=== PATIENT | male | born 1940 | race Caucasian/White ===

== ENCOUNTER 2016-05-07 15:32 | Inpatient (IN) | payer MEDICARE ==
[~2016-05-07] VITALS: Ht 177.8 cm; Wt 47.5 kg
[2016-05-07 17:01] VITALS: BP_SYST 110; BP_SYST 98; RESP 16; TEMP 97.3
[2016-05-07 17:02] VITALS: BMI 14.6
[2016-05-07] MEDS ORDERED: DUONEB INH ONE (17:05)
[2016-05-07] MEDS ORDERED: CEFTRIAXONE 1 GM in SODIUM CHLORIDE 0.9% 50 ML IV SCH (17:06)
[2016-05-07] MEDS: DUONEB INH SCH ×2 (17:07→23:21)
[2016-05-07 17:21] VITALS: RESP 18
[2016-05-07 19:30] VITALS: BP_SYST 107; RESP 18; TEMP 97.1
[2016-05-07] MEDS ORDERED: OPTIRAY 350 100 ML VIAL HMH IV ONE (20:23)
[2016-05-07 22:43] VITALS: BP_SYST 90; RESP 18; TEMP 98.4
[2016-05-07] MEDS ORDERED: MAG CIT SOLN 300 ML PO ONE (23:15)
[2016-05-08] MEDS: PIPERACIL/TAZO 3.375GM/50ML 50 ML IV SCH ×4 (00:17→17:31)
[2016-05-08] MEDS: PROMETHAZINE 25 MG/ML VIAL IV PRN (01:58)
[2016-05-08 04:03] VITALS: BP_SYST 117; RESP 18; TEMP 98
[2016-05-08 04:04] VITALS: RESP 18; TEMP 98
[2016-05-08] MEDS: CILOSTAZOL 100 MG TAB PO SCH ×2 (06:11→17:31)
[2016-05-08] MEDS: DUONEB INH SCH ×5 (06:56→22:48)
[2016-05-08 07:21] VITALS: BP_SYST 93; RESP 16; TEMP 97.3
[2016-05-08 09:33] VITALS: Ht 177.8 cm; Wt 47.5 kg
[2016-05-08 11:04] VITALS: BP_SYST 97; RESP 16; TEMP 97.7
[2016-05-08 15:10] VITALS: BP_SYST 96; RESP 16; TEMP 97.4
[2016-05-08] MEDS: NEB-XOPENEX 0.63 MG/3 ML INH SCH ×2 (19:00→22:49)
[2016-05-08] MEDS: NEB-BUDESONIDE 0.5 MG INH SCH (19:20)
[2016-05-08] MEDS: NEB-BROVANA 15 MCG/2 ML INH SCH (19:20)
[2016-05-08 21:03] VITALS: BP_SYST 85; RESP 18; TEMP 98.1
[2016-05-08] MEDS: METHYLPRED SOD SUCC 40 MG VIAL IV SCH (21:34)
[2016-05-09] VITALS (7 sets, daily range): BP systolic 85–122; RESP 16–20; TEMP 97.8–98.6
[2016-05-09] MEDS: PIPERACIL/TAZO 3.375GM/50ML 50 ML IV SCH ×4 (00:11→17:22)
[2016-05-09] MEDS: METHYLPRED SOD SUCC 40 MG VIAL IV SCH ×4 (00:12→17:22)
[2016-05-09] MEDS ORDERED: *PINK BRACELET XX ONE (05:00)
[2016-05-09] MEDS: CILOSTAZOL 100 MG TAB PO SCH ×2 (06:03→17:22)
[2016-05-09] MEDS: SODIUM CHLORIDE 0.9% 1,000 ML IV SCH (06:38)
[2016-05-09] MEDS: NEB-XOPENEX 0.63 MG/3 ML INH SCH ×4 (07:00→22:41)
[2016-05-09] MEDS: NEB-BROVANA 15 MCG/2 ML INH SCH ×2 (07:40→18:37)
[2016-05-09] MEDS: NEB-BUDESONIDE 0.5 MG INH SCH ×2 (07:40→18:37)
[2016-05-09] MEDS: DUONEB INH SCH ×5 (07:40→22:40)
[2016-05-09] MEDS: [UNRECOGNIZED DRUG - OTHER] XX SCH ×2 (08:00→20:00)
[2016-05-09] MEDS: FAMOTIDINE 20 MG TAB PO SCH (22:05)
[2016-05-09] MEDS: CHOLECALCIFEROL 5,000 UNITS CAP PO SCH (22:07)
[2016-05-10] MEDS: PIPERACIL/TAZO 3.375GM/50ML 50 ML IV SCH ×4 (01:28→18:04)
[2016-05-10] MEDS: METHYLPRED SOD SUCC 40 MG VIAL IV SCH ×4 (01:28→18:04)
[2016-05-10 04:42] VITALS: BP_SYST 97; RESP 16; TEMP 97.9
[2016-05-10] MEDS: SODIUM CHLORIDE 0.9% 1,000 ML IV SCH ×2 (04:53→16:27)
[2016-05-10] MEDS: DUONEB INH SCH ×5 (06:14→22:53)
[2016-05-10] MEDS: NEB-BROVANA 15 MCG/2 ML INH SCH ×2 (06:14→18:43)
[2016-05-10] MEDS: NEB-BUDESONIDE 0.5 MG INH SCH ×2 (06:14→18:43)
[2016-05-10] MEDS: NEB-XOPENEX 0.63 MG/3 ML INH SCH ×5 (06:15→22:53)
[2016-05-10] MEDS: CILOSTAZOL 100 MG TAB PO SCH ×2 (06:36→16:28)
[2016-05-10 07:17] VITALS: BP_SYST 98; RESP 20; TEMP 97.7
[2016-05-10] MEDS: [UNRECOGNIZED DRUG - OTHER] XX SCH ×2 (08:00→19:19)
[2016-05-10] MEDS: CHOLECALCIFEROL 5,000 UNITS CAP PO SCH (08:44)
[2016-05-10] MEDS: FAMOTIDINE 20 MG TAB PO SCH ×2 (08:45→21:40)
[2016-05-10 11:44] VITALS: BP_SYST 93; RESP 20; TEMP 97.7
[2016-05-10] MEDS: Senna/DSS 50/8.6 MG TAB PO SCH ×2 (12:55→21:39)
[2016-05-10 15:23] VITALS: BP_SYST 83; RESP 18; TEMP 98.1
[2016-05-10 20:06] VITALS: BP_SYST 115; RESP 20; TEMP 98.1
[2016-05-10] MEDS: TAMSULOSIN 0.4 MG CAP PO SCH (21:39)
[2016-05-11] VITALS (19 sets, daily range): BP systolic 81–134; RESP 16–19; TEMP 97.5–98.4
[2016-05-11] MEDS: DUONEB INH SCH ×4 (06:02→18:18)
[2016-05-11] MEDS: NEB-BUDESONIDE 0.5 MG INH SCH ×2 (06:02→18:18)
[2016-05-11] MEDS: NEB-BROVANA 15 MCG/2 ML INH SCH ×2 (06:02→18:18)
[2016-05-11] MEDS: NEB-XOPENEX 0.63 MG/3 ML INH SCH ×5 (06:03→23:19)
[2016-05-11] MEDS: PIPERACIL/TAZO 3.375GM/50ML 50 ML IV SCH ×4 (06:04→18:10)
[2016-05-11] MEDS: SODIUM CHLORIDE 0.9% 1,000 ML IV SCH (06:05)
[2016-05-11] MEDS: CILOSTAZOL 100 MG TAB PO SCH ×2 (06:14→15:56)
[2016-05-11] MEDS: METHYLPRED SOD SUCC 40 MG VIAL IV SCH ×4 (06:14→18:10)
[2016-05-11] MEDS: [UNRECOGNIZED DRUG - OTHER] XX SCH ×2 (08:00→20:00)
[2016-05-11] MEDS: CHOLECALCIFEROL 5,000 UNITS CAP PO SCH (09:47)
[2016-05-11] MEDS: FAMOTIDINE 20 MG TAB PO SCH ×2 (09:47→22:15)
[2016-05-11] MEDS: Senna/DSS 50/8.6 MG TAB PO SCH (10:00)
[2016-05-11] MEDS ORDERED: ALU/MAG/SIM 30 ML UDC PO PRN (18:45)
[2016-05-11] MEDS ORDERED: Furosemide 40 MG/4 ML VIAL ONE (19:53)
[2016-05-11] MEDS ORDERED: Furosemide 20 MG/2 ML VIAL IV ONE (19:55)
[2016-05-11] MEDS ORDERED: CARDIZEM 1 MG/ML DRIP 125 ML IV SCH (20:25)
[2016-05-11] MEDS ORDERED: DILTIAZEM 125 MG in DEXTROSE 125 ML IV PUSH ONE (20:30)
[2016-05-11] MEDS: POLYETHYLENE GLYCOL 17 GM PACKET PO SCH (22:14)
[2016-05-11] MEDS: ENOXAPARIN 30 MG/0.3 ML SYR SUBQ SCH (22:15)
[2016-05-11] MEDS: TAMSULOSIN 0.4 MG CAP PO SCH (22:15)
[2016-05-12] VITALS (9 sets, daily range): BP systolic 87–132; RESP 16–19; TEMP 97.8–98.4
[2016-05-12] MEDS ORDERED: MISSING DOSE XX ONE ×2 (01:05)
[2016-05-12] MEDS ORDERED: ACETAMINOPHEN 325 MG TAB PO PRN (01:15)
[2016-05-12] MEDS: METHYLPRED SOD SUCC 40 MG VIAL IV SCH ×2 (01:23→05:30)
[2016-05-12] MEDS: PIPERACIL/TAZO 3.375GM/50ML 50 ML IV SCH ×5 (01:24→23:19)
[2016-05-12] MEDS: CILOSTAZOL 100 MG TAB PO SCH ×3 (05:28→20:44)
[2016-05-12] MEDS: NEB-XOPENEX 0.63 MG/3 ML INH SCH (06:42)
[2016-05-12] MEDS: NEB-BUDESONIDE 0.5 MG INH SCH ×2 (06:42→19:30)
[2016-05-12] MEDS: FAMOTIDINE 20 MG TAB PO SCH (08:25)
[2016-05-12] MEDS: CHOLECALCIFEROL 5,000 UNITS CAP PO SCH (08:25)
[2016-05-12] MEDS: ENOXAPARIN 30 MG/0.3 ML SYR SUBQ SCH ×2 (08:25→20:46)
[2016-05-12] MEDS: [UNRECOGNIZED DRUG - OTHER] XX SCH ×2 (08:25→20:00)
[2016-05-12] MEDS: NEB-XOPENEX 0.63 MG/3 ML INH PRN (10:47)
[2016-05-12] MEDS: DILTIAZEM CD 120 MG CAP PO SCH (19:40)
[2016-05-12] MEDS: RANITIDINE 150 MG TAB PO SCH (20:44)
[2016-05-12] MEDS: TAMSULOSIN 0.4 MG CAP PO SCH (20:44)
[2016-05-12] MEDS: POLYETHYLENE GLYCOL 17 GM PACKET PO SCH (20:45)
[2016-05-12] MEDS: KCL CR 10 MEQ TAB PO SCH (22:54)
[2016-05-13] VITALS: BP_SYST 118; RESP 18; TEMP 98.3
[2016-05-13 04:01] VITALS: BP_SYST 111; RESP 16; TEMP 98.1
[2016-05-13] MEDS: PIPERACIL/TAZO 3.375GM/50ML 50 ML IV SCH ×4 (05:12→23:54)
[2016-05-13] MEDS: CILOSTAZOL 100 MG TAB PO SCH ×2 (06:05→16:22)
[2016-05-13] MEDS: NEB-BUDESONIDE 0.5 MG INH SCH ×2 (06:55→19:34)
[2016-05-13 07:46] VITALS: BP_SYST 132; RESP 16; TEMP 97.8
[2016-05-13] MEDS: [UNRECOGNIZED DRUG - OTHER] XX SCH ×2 (08:00→20:00)
[2016-05-13] MEDS: CHOLECALCIFEROL 5,000 UNITS CAP PO SCH (08:34)
[2016-05-13] MEDS: DILTIAZEM CD 120 MG CAP PO SCH (08:34)
[2016-05-13] MEDS: KCL CR 10 MEQ TAB PO SCH ×2 (08:34→20:52)
[2016-05-13] MEDS: ENOXAPARIN 30 MG/0.3 ML SYR SUBQ SCH ×2 (08:34→20:53)
[2016-05-13] MEDS: RANITIDINE 150 MG TAB PO SCH ×2 (08:34→20:52)
[2016-05-13 11:15] VITALS: BP_SYST 111; RESP 18; TEMP 97.6; TEMP 98
[2016-05-13 16:01] VITALS: BP_SYST 94; RESP 18; TEMP 97.9
[2016-05-13 20:03] VITALS: BP_SYST 106; RESP 18; TEMP 98
[2016-05-13] MEDS: TAMSULOSIN 0.4 MG CAP PO SCH (20:52)
[2016-05-13] MEDS: POLYETHYLENE GLYCOL 17 GM PACKET PO SCH (20:53)
[2016-05-13] MEDS: NEB-XOPENEX 0.63 MG/3 ML INH PRN (21:09)
[2016-05-13] MEDS ORDERED: DIGOXIN 0.5 MG/2 ML AMP IV ONE (22:10)
[2016-05-14] VITALS (9 sets, daily range): BP systolic 85–128; RESP 16–20; TEMP 97.3–98.8
[2016-05-14] MEDS: PIPERACIL/TAZO 3.375GM/50ML 50 ML IV SCH ×3 (05:06→18:17)
[2016-05-14] MEDS: CILOSTAZOL 100 MG TAB PO SCH ×2 (06:34→15:59)
[2016-05-14] MEDS: NEB-BUDESONIDE 0.5 MG INH SCH ×2 (07:15→20:14)
[2016-05-14] MEDS: [UNRECOGNIZED DRUG - OTHER] XX SCH ×2 (08:00→20:00)
[2016-05-14] MEDS: CHOLECALCIFEROL 5,000 UNITS CAP PO SCH (08:03)
[2016-05-14] MEDS: DILTIAZEM CD 120 MG CAP PO SCH (08:03)
[2016-05-14] MEDS: ENOXAPARIN 30 MG/0.3 ML SYR SUBQ SCH ×2 (08:03→21:05)
[2016-05-14] MEDS: RANITIDINE 150 MG TAB PO SCH ×2 (08:04→21:04)
[2016-05-14] MEDS: KCL CR 10 MEQ TAB PO SCH ×2 (08:04→21:05)
[2016-05-14] MEDS: TAMSULOSIN 0.4 MG CAP PO SCH (21:05)
[2016-05-14] MEDS: POLYETHYLENE GLYCOL 17 GM PACKET PO SCH (21:06)
[2016-05-14] MEDS: NEB-Levalbuterol 0.31 MG/3 ML NEBU INH SCH (21:50)
[2016-05-14] MEDS ORDERED: MAGNESIUM SULF 1 GM/100 ML 100 ML IV ONE (21:50)
[2016-05-15] VITALS (8 sets, daily range): BP systolic 78–117; RESP 16–20; TEMP 97.4–98.5
[2016-05-15] MEDS: PIPERACIL/TAZO 3.375GM/50ML 50 ML IV SCH (00:24)
[2016-05-15] MEDS ORDERED: SALINE FLUSH 10 ML FLUSH PRN (00:25)
[2016-05-15] MEDS: SODIUM CHLORIDE 0.9% FLUSH BAG 500 ML IV SCH (06:23)
[2016-05-15] MEDS: CILOSTAZOL 100 MG TAB PO SCH ×2 (06:24→15:52)
[2016-05-15] MEDS: NEB-Levalbuterol 0.31 MG/3 ML NEBU INH SCH ×3 (07:16→20:16)
[2016-05-15] MEDS: NEB-BUDESONIDE 0.5 MG INH SCH ×2 (07:16→20:16)
[2016-05-15] MEDS: [UNRECOGNIZED DRUG - OTHER] XX SCH ×2 (07:30→20:00)
[2016-05-15] MEDS: CHOLECALCIFEROL 5,000 UNITS CAP PO SCH (09:20)
[2016-05-15] MEDS: SALINE FLUSH 10 ML FLUSH SCH ×2 (09:20→20:10)
[2016-05-15] MEDS: RANITIDINE 150 MG TAB PO SCH ×2 (09:20→20:11)
[2016-05-15] MEDS: ENOXAPARIN 30 MG/0.3 ML SYR SUBQ SCH ×2 (09:21→20:11)
[2016-05-15] MEDS: DILTIAZEM CD 180 MG CAP PO SCH (09:28)
[2016-05-15] MEDS: DIGOXIN 0.125 MG TAB PO SCH (11:42)
[2016-05-15] MEDS ORDERED: NEB-Levalbuterol 0.31 MG/3 ML NEBU INH PRN (16:10)
[2016-05-15] MEDS: LORAZEPAM 0.5 MG TAB PO PRN (16:29)
[2016-05-15] MEDS: SOD CHL NASAL SPR 45ML NARE EACH SCH ×2 (16:59→20:10)
[2016-05-15] MEDS: TAMSULOSIN 0.4 MG CAP PO SCH (20:11)
[2016-05-15] MEDS: POLYETHYLENE GLYCOL 17 GM PACKET PO SCH (20:13)
[2016-05-16] VITALS (8 sets, daily range): BP systolic 95–115; RESP 18–20; TEMP 97.6–98.5
[2016-05-16] MEDS: SODIUM CHLORIDE 0.9% FLUSH BAG 500 ML IV SCH (02:09)
[2016-05-16] MEDS: SOD CHL NASAL SPR 45ML NARE EACH SCH ×7 (04:00→23:02)
[2016-05-16] MEDS: CILOSTAZOL 100 MG TAB PO SCH ×2 (06:02→15:52)
[2016-05-16] MEDS: NEB-BUDESONIDE 0.5 MG INH SCH ×2 (07:19→19:08)
[2016-05-16] MEDS: NEB-Levalbuterol 0.31 MG/3 ML NEBU INH SCH ×3 (07:19→19:08)
[2016-05-16] MEDS: [UNRECOGNIZED DRUG - OTHER] XX SCH ×2 (07:42→20:00)
[2016-05-16] MEDS: BISOPROLOL 5 MG TAB PO SCH (09:00)
[2016-05-16] MEDS: SALINE FLUSH 10 ML FLUSH SCH ×2 (09:40→20:29)
[2016-05-16] MEDS: CHOLECALCIFEROL 5,000 UNITS CAP PO SCH (09:40)
[2016-05-16] MEDS: ENOXAPARIN 30 MG/0.3 ML SYR SUBQ SCH ×2 (09:40→20:28)
[2016-05-16] MEDS: RANITIDINE 150 MG TAB PO SCH ×2 (09:40→20:27)
[2016-05-16] MEDS: DILTIAZEM CD 120 MG CAP PO SCH (09:44)
[2016-05-16] MEDS: DILTIAZEM CD 180 MG CAP PO SCH (09:49)
[2016-05-16] MEDS: DIGOXIN 0.125 MG TAB PO SCH (11:39)
[2016-05-16] MEDS: LORAZEPAM 0.5 MG TAB PO PRN (11:39)
[2016-05-16] MEDS: TAMSULOSIN 0.4 MG CAP PO SCH (20:27)
[2016-05-16] MEDS: POLYETHYLENE GLYCOL 17 GM PACKET PO SCH (20:28)
[2016-05-17 03:22] VITALS: BP_SYST 112; RESP 20; TEMP 98.6
[2016-05-17] MEDS: SOD CHL NASAL SPR 45ML NARE EACH SCH ×6 (04:00→22:58)
[2016-05-17] MEDS: SODIUM CHLORIDE 0.9% FLUSH BAG 500 ML IV SCH (06:00)
[2016-05-17] MEDS: NEB-BUDESONIDE 0.5 MG INH SCH ×2 (06:21→20:15)
[2016-05-17] MEDS: NEB-Levalbuterol 0.31 MG/3 ML NEBU INH SCH ×3 (06:21→20:15)
[2016-05-17] MEDS: CILOSTAZOL 100 MG TAB PO SCH ×2 (06:23→16:25)
[2016-05-17] MEDS: [UNRECOGNIZED DRUG - OTHER] XX SCH ×2 (07:20→19:58)
[2016-05-17 07:25] VITALS: BP_SYST 101; RESP 16; TEMP 98.1
[2016-05-17] MEDS: BISOPROLOL 5 MG TAB PO SCH ×2 (09:00→09:23)
[2016-05-17] MEDS: CHOLECALCIFEROL 5,000 UNITS CAP PO SCH (09:23)
[2016-05-17] MEDS: DILTIAZEM CD 120 MG CAP PO SCH (09:23)
[2016-05-17] MEDS: RANITIDINE 150 MG TAB PO SCH ×2 (09:23→19:57)
[2016-05-17] MEDS: SALINE FLUSH 10 ML FLUSH SCH ×2 (09:24→19:59)
[2016-05-17] MEDS: ENOXAPARIN 30 MG/0.3 ML SYR SUBQ SCH ×2 (09:25→19:58)
[2016-05-17 11:38] VITALS: BP_SYST 88; RESP 20
[2016-05-17] MEDS: DIGOXIN 0.125 MG TAB PO SCH (12:10)
[2016-05-17 15:23] VITALS: BP_SYST 102; RESP 20; TEMP 97.7
[2016-05-17] MEDS: TAMSULOSIN 0.4 MG CAP PO SCH (19:57)
[2016-05-17 21:00] VITALS: BP_SYST 96; RESP 20; TEMP 97.7
[2016-05-18] VITALS (9 sets, daily range): BP systolic 88–118; RESP 18–20; TEMP 97–98.3
[2016-05-18] MEDS: SOD CHL NASAL SPR 45ML NARE EACH SCH ×6 (04:00→23:41)
[2016-05-18] MEDS: SODIUM CHLORIDE 0.9% FLUSH BAG 500 ML IV SCH (06:00)
[2016-05-18] MEDS: NEB-BUDESONIDE 0.5 MG INH SCH ×2 (06:12→18:14)
[2016-05-18] MEDS: NEB-Levalbuterol 0.31 MG/3 ML NEBU INH SCH ×3 (06:12→18:14)
[2016-05-18] MEDS: CILOSTAZOL 100 MG TAB PO SCH ×2 (06:27→15:24)
[2016-05-18] MEDS: [UNRECOGNIZED DRUG - OTHER] XX SCH ×2 (07:18→20:00)
[2016-05-18] MEDS: SALINE FLUSH 10 ML FLUSH SCH ×2 (08:01→21:32)
[2016-05-18] MEDS: CHOLECALCIFEROL 5,000 UNITS CAP PO SCH (08:01)
[2016-05-18] MEDS: ENOXAPARIN 30 MG/0.3 ML SYR SUBQ SCH ×2 (08:01→21:34)
[2016-05-18] MEDS: DILTIAZEM CD 120 MG CAP PO SCH (08:01)
[2016-05-18] MEDS: RANITIDINE 150 MG TAB PO SCH ×2 (08:01→21:33)
[2016-05-18] MEDS: DIGOXIN 0.125 MG TAB PO SCH (11:58)
[2016-05-18] MEDS: PROMETHAZINE 25 MG/ML VIAL IV PRN (12:53)
[2016-05-18] MEDS: TAMSULOSIN 0.4 MG CAP PO SCH (21:33)
[2016-05-19] VITALS (9 sets, daily range): BP systolic 93–114; RESP 18–20; TEMP 97.7–98.4
[2016-05-19] MEDS: SOD CHL NASAL SPR 45ML NARE EACH SCH ×6 (03:13→23:11)
[2016-05-19] MEDS: SODIUM CHLORIDE 0.9% FLUSH BAG 500 ML IV SCH (06:00)
[2016-05-19] MEDS: CILOSTAZOL 100 MG TAB PO SCH ×2 (06:02→15:50)
[2016-05-19] MEDS: NEB-Levalbuterol 0.31 MG/3 ML NEBU INH SCH ×3 (06:45→18:37)
[2016-05-19] MEDS: NEB-BUDESONIDE 0.5 MG INH SCH ×2 (06:45→18:37)
[2016-05-19] MEDS: [UNRECOGNIZED DRUG - OTHER] XX SCH ×2 (07:49→19:47)
[2016-05-19] MEDS: CHOLECALCIFEROL 5,000 UNITS CAP PO SCH (09:00)
[2016-05-19] MEDS: ENOXAPARIN 30 MG/0.3 ML SYR SUBQ SCH ×2 (09:00→19:48)
[2016-05-19] MEDS: BISOPROLOL 5 MG TAB PO SCH (09:00)
[2016-05-19] MEDS: DILTIAZEM CD 120 MG CAP PO SCH (09:00)
[2016-05-19] MEDS: RANITIDINE 150 MG TAB PO SCH ×2 (09:00→19:47)
[2016-05-19] MEDS: SALINE FLUSH 10 ML FLUSH SCH ×2 (09:05→19:47)
[2016-05-19] MEDS: DIGOXIN 0.125 MG TAB PO SCH (12:30)
[2016-05-19] MEDS: TAMSULOSIN 0.4 MG CAP PO SCH (19:48)
[2016-05-20 03:09] VITALS: BP_SYST 100; RESP 18; TEMP 98.1
[2016-05-20] MEDS: SOD CHL NASAL SPR 45ML NARE EACH SCH ×3 (03:45→11:25)
[2016-05-20] MEDS: SODIUM CHLORIDE 0.9% FLUSH BAG 500 ML IV SCH (06:00)
[2016-05-20] MEDS: CILOSTAZOL 100 MG TAB PO SCH (06:13)
[2016-05-20] MEDS: NEB-Levalbuterol 0.31 MG/3 ML NEBU INH SCH ×2 (06:35→11:56)
[2016-05-20] MEDS: NEB-BUDESONIDE 0.5 MG INH SCH (06:35)
[2016-05-20 07:39] VITALS: BP_SYST 79; RESP 18; TEMP 98.2
[2016-05-20] MEDS: [UNRECOGNIZED DRUG - OTHER] XX SCH ×2 (08:00→12:54)
[2016-05-20 08:25] VITALS: BP_SYST 80
[2016-05-20] MEDS: ENOXAPARIN 30 MG/0.3 ML SYR SUBQ SCH (08:34)
[2016-05-20] MEDS: CHOLECALCIFEROL 5,000 UNITS CAP PO SCH (08:54)
[2016-05-20] MEDS: SALINE FLUSH 10 ML FLUSH SCH (08:55)
[2016-05-20] MEDS: RANITIDINE 150 MG TAB PO SCH (08:55)
[2016-05-20] MEDS: BISOPROLOL 5 MG TAB PO SCH (08:55)
[2016-05-20] MEDS: DILTIAZEM CD 120 MG CAP PO SCH (08:55)
[2016-05-20] MEDS: DIGOXIN 0.125 MG TAB PO SCH (11:26)
[2016-05-20 11:32] VITALS: BP_SYST 97; RESP 18; TEMP 97.2
[2016-05-20 12:42] VITALS: BP_SYST 97; RESP 18; TEMP 97.2
== END 2016-05-20 14:37 | disposition home or self-care (01) | DRG 190 ==
LOC: ENRESERVDT → ENRESERVTM → 4NT 15:55 → ENPENDDIS 15:55 → PCU2 05-11 20:10 → 3NT 05-14 17:51
PROVIDERS: ADMIT Internal Medicine; ATTEND Internal Medicine
DX: J44.0 Chronic obstructive pulmonary disease with (acute) lower respiratory infection (principal); J18.9 Pneumonia, unspecified organism; E46 Unspecified protein-calorie malnutrition; R64 Cachexia; E86.0 Dehydration; M87.152 Osteonecrosis due to drugs, left femur; M87.151 Osteonecrosis due to drugs, right femur; I47.1 Supraventricular tachycardia; Z68.1 Body mass index [BMI] 19.9 or less, adult; J44.1 Chronic obstructive pulmonary disease with (acute) exacerbation; K21.9 Gastro-esophageal reflux disease without esophagitis; N40.0 Benign prostatic hyperplasia without lower urinary tract symptoms; F41.9 Anxiety disorder, unspecified; F17.210 Nicotine dependence, cigarettes, uncomplicated; R63.4 Abnormal weight loss; I73.9 Peripheral vascular disease, unspecified; T38.0X5A Adverse effect of glucocorticoids and synthetic analogues, initial encounter; K59.00 Constipation, unspecified; R33.9 Retention of urine, unspecified; R19.7 Diarrhea, unspecified; Z79.82 Long term (current) use of aspirin; Z79.52 Long term (current) use of systemic steroids
CPT/HCPCS: 36600; 71010; 71260; 73721; 74177; 80053; 82306; 82533; 82553; 82803; 83540; 83605; 83735; 84134; 84145; 84153; 84439; 84443; 84466; 84484; 85025; 85610; 85652; 85730; 86141; 87493; 93005; 94640; 94664; 94799